=== PATIENT | female | born 1980 | race Caucasian/White ===

== ENCOUNTER 2018-11-27 20:53 | Emergency (ER) | payer OTHER ==
[~2018-11-27] VITALS: Ht 170.2 cm; Wt 171.5 kg
[~2018-11-27 20:53] MED LIST: ALPRAZOLAM; PROZAC; [UNRECOGNIZED DRUG - REMARK]; phentermine
[2018-11-27] MEDS ORDERED: HYDROCHLOROTHIAZIDE (21:09)
[2018-11-27] MEDS ORDERED: WELLBUTRIN (21:09)
[2018-11-27 21:25] LABS: HEMATOCRIT 36.9 % (37.0-47.0); HEMOGLOBIN 11.5 gm/dL (12.0-15.0); MCH 21.7 pg (26.0-34.0); MCHC 31.2 g/dL (28.0-37.0); MCV 69.7 fL (80.0-100.0); MPV 7.6 fl. (7.2-11.1); NUCLEATED RBCS 0 /100WBC; PLATELET COUNT* 326 thou/uL (150-400); RBC 5.29 mil/uL (4.20-5.00); RDW-CV 17.4 % (10.5-14.5); WBC 7.9 thou/uL (4.0-11.0)
[2018-11-27 21:29] LABS: URINE BILIRUBIN NEGATIVE (Negative); URINE BLOOD NEGATIVE (Negative); URINE CLARITY CLEAR; URINE COLOR YELLOW; URINE GLUCOSE-RANDOM NEGATIVE (Negative); URINE KETONES NEGATIVE (Negative); URINE LEUKOCYTES-REFLEX NEGATIVE (Negative); URINE NITRITE-REFLEX NEGATIVE (Negative); URINE PROTEIN TRACE (Negative); URINE SPECIFIC GRAVITY 1.025 (1.005-1.030)
[2018-11-27 21:40] LABS: CALCIUM 8.1 mg/dL (8.5-10.1); CREATININE 0.9 mg/dL (0.6-1.3); POTASSIUM 3.1 mmol/L (3.5-5.1)
[2018-11-27 22:14] LABS: ABSOLUTE LYMPHOCYTES 3.7 thou/uL (0.8-5.3); ABSOLUTE MONOCYTES 1.3 thou/uL (0.0-1.2); ABSOLUTE NEUTROPHILS 2.9 thou/uL (1.6-8.1); PLATELET ESTIMATE ADEQUATE
[2018-11-27 22:15] LABS: ANISOCYTOSIS 1+
[2018-11-27 22:16] LABS: MICROCYTES 3+
[2018-11-27 22:19] LABS: HYPOCHROMASIA 1+
[2018-11-28] MEDS ORDERED: MEDROXYPROGESTE10 MG PO (00:20)
[2018-11-28 00:59] VITALS: BP 122/74
== END 2018-11-28 00:30 | disposition home or self-care (01) ==
LOC: M.ERS 20:53
PROVIDERS: Emergency Medicine
DX: N93.9 Abnormal uterine and vaginal bleeding, unspecified (principal); Z98.890 Other specified postprocedural states; Z90.49 Acquired absence of other specified parts of digestive tract

== ENCOUNTER → 2019-05-29 | Outpatient (CLI) | payer OTHER ==
[~2019-05-29] MED LIST changes: +HYDROCHLOROTHIAZIDE; +MEDROXYPROGESTE10 MG PO; +WELLBUTRIN
== END ==
LOC: M.LAB 04:48 → EDSTATUS 17:06 → M.LAB 17:07
DX: E87.6 Hypokalemia (principal)

== ENCOUNTER 2019-08-09 03:01 | Emergency (ER) | payer OTHER ==
[~2019-08-09] VITALS: Ht 170.2 cm; Wt 158.8 kg
[2019-08-09 03:28] LABS: ABSOLUTE BASOPHILS 0.1 thou/uL (0.0-0.2); ABSOLUTE EOSINOPHILS 0.2 thou/uL (0.0-0.7); ABSOLUTE LYMPHOCYTES 2.4 thou/uL (0.8-5.3); ABSOLUTE MONOCYTES 0.6 thou/uL (0.0-1.2); ABSOLUTE NEUTROPHILS 7.9 thou/uL (1.6-8.1); BASOPHILS 0.8 %; EOSINOPHILS 1.4 %; HEMATOCRIT 37.6 % (37.0-47.0); HEMOGLOBIN 11.8 gm/dL (12.0-15.0); LYMPHOCYTES 21.2 %; MCH 22.9 pg (26.0-34.0); MCHC 31.3 g/dL (28.0-37.0); MCV 73.1 fL (80.0-100.0); MONOCYTES 5.4 %; MPV 7.8 fl. (7.2-11.1); NUCLEATED RBCS 0 /100WBC; PLATELET COUNT* 490 thou/uL (150-400); POLYS 71.2 %; RBC 5.15 mil/uL (4.20-5.00); RDW-CV 16.1 % (10.5-14.5); WBC 11.1 thou/uL (4.0-11.0)
[2019-08-09 03:41] LABS: URINE BILIRUBIN NEGATIVE (Negative); URINE BLOOD NEGATIVE (Negative); URINE CLARITY CLEAR; URINE COLOR YELLOW; URINE GLUCOSE-RANDOM NEGATIVE (Negative); URINE KETONES NEGATIVE (Negative); URINE LEUKOCYTES-REFLEX NEGATIVE (Negative); URINE NITRITE-REFLEX NEGATIVE (Negative); URINE PROTEIN NEGATIVE (Negative); URINE SPECIFIC GRAVITY >= 1.030 (1.005-1.030); URINE UROBILINOGEN 0.2 E.U./dl (0.2-1.0)
[2019-08-09 03:44] LABS: CALCIUM 8.7 mg/dL (8.5-10.1); CREATININE 0.8 mg/dL (0.6-1.3); POTASSIUM 3.9 mmol/L (3.5-5.1)
[2019-08-09 03:48] LABS: ALBUMIN 3.4 g/dL (3.4-5.0); TOTAL BILIRUBIN 0.2 mg/dL (<0.1-1.0); TOTAL PROTEIN 7.4 g/dL (6.4-8.2)
[2019-08-09 06:15] VITALS: BP 136/66
[2019-08-09 06:16] LABS: HYPOCHROMASIA 2+
[2019-08-09 06:17] LABS: MICROCYTES 1+; PLATELET ESTIMATE INCREASED
--- NOTE | 2019-08-09 10:21 | EKG ---
[place] [address] ELECTROCARDIOGRAM REPORT Name: CARRIE CEJA [id number] Admission: 08/09/19 Attend Phys: Discharge: 08/09/19 Date of : 82 Report #: [id number] THIS REPORT FOR: //name// [facility] ED Test Date: 2019-08-09 Test Time: 03:28:29 Pat Name: CARRIE CEJA Department: Room: Gender: F [employer]: [place] : 1980 Requested By: Tres [place] Order Number: [id number] MD: Magnus Peña Measurements Intervals [place] Rate: 86 P: 49 HI: 227 QRS: 43 QRSD: 96 T: 43 QT: 364 QTc: 436 Interpretive Statements Sinus rhythm Prolonged HI interval Left atrial enlargement No previous ECG available for comparison Electronically Signed On 08-09-2019 10:21:17 [employer] by Magnus Peña [email or web address] <ELECTRONICALLY SIGNED> By: Magnus Peña MD, [facility] 08/09/19 1021 [id number] Magnus Peña MD, FACC /EPI
== END 2019-08-09 06:45 | disposition home or self-care (01) ==
LOC: M.ERS 03:01
PROVIDERS: Family Medicine
DX: R10.84 Generalized abdominal pain (principal); R53.1 Weakness; Z90.89 Acquired absence of other organs